=== PATIENT | female | born 1940 | race Caucasian/White ===

== ENCOUNTER 2019-06-24 07:01 | Inpatient (IN) | payer MEDICARE ==
[2019-06-24] MEDS ORDERED: ONDANSETRON 4 MG/2 ML INJ IV ONE (07:04)
[2019-06-24] MEDS ORDERED: CLOPIDOGREL 300 MG TAB PO ONE (07:04)
[2019-06-24] MEDS ORDERED: fentaNYL 100 MCG/2 ML INJ IV ONE (07:04)
[2019-06-24] MEDS ORDERED: HEPARIN 10,000 UNITS/10 ML VIAL IV ONE (07:05)
--- NOTE | 2019-06-24 07:09 | Emergency Department Report ---
HPI - General Time Seen by Provider: 06/24/19 07:03 - [facility] HPI: Room 22 The patient is an 79-year-old female presented with a chief complaint of chest pain. History is obtained by the daughter as the patient does not speak [place]. The patient reportedly began complaining of substernal chest pressure at 05:00 this morning. Patient missed a shortness of breath, diaphoresis and nausea without vomiting with her chest pressure. Patient currently gets her chest pain score 7/10. Patient to aspirin 324 mg at home. The patient states she had 2 cardiac stents placed in 2012 Location: [See above] Duration: [See above] Quality: [See above] Severity: [See above] Timing: [See above] Context: [See above] Modifying factors: [See above] Associated signs and symptoms: [see above] ED Past Medical Hx - Past Medical History Hx Hypertension: Yes Hx Heart Attack/AMI: Yes (2012 stent 2) - Surgical History Hx Coronary Stent: Yes (2012) Hx Cholecystectomy: Yes - Family History Family history: no significant - Social History Smoking Status: Never Smoker Substance Use Type: None ED Review of Systems ROS: Stated complaint: CHEST PAIN Other details as noted in HPI Constitutional: diaphoresis Eyes: denies: eye pain ENT: denies: throat pain Respiratory: shortness of breath Cardiovascular: chest pain Endocrine: no symptoms reported Gastrointestinal: nausea. denies: vomiting Genitourinary: denies: dysuria Musculoskeletal: denies: back pain Neurological: denies: headache Physical Exam - Physical Exam Physical Exam: GENERAL: The patient is well-developed well-nourished female sitting on stretcher not appearing to be in acute distress. [] HEENT: Normocephalic. Atraumatic. Extraocular motions are intact. Patient has moist mucous membranes. NECK: Supple. Trachea midline CHEST/LUNGS: There is no respiratory distress noted. HEART/CARDIOVASCULAR: Regular. There is no tachycardia. There is no gallop rub or murmur. ABDOMEN: Abdomen is soft, nontender. Patient has normal bowel sounds. There is no abdominal distention. SKIN: There is no rash. There is no edema. There is no diaphoresis. NEURO: The patient is awake, alert, and oriented. The patient is cooperative. The patient has normal speech MUSCULOSKELETAL: There is no evidence of acute injury. ED Course - Consultations Consultation #1: 06/24/19 06:47 Code STEMI called and EKG sent to cardiology (Dr Ellison) 06/24/19 06:[address] Ellison ED Medical Decision Making - EKG Data -: EKG Interpreted by Me EKG shows normal: sinus rhythm Rate: normal - EKG Data When compared to previous EKG there are: previous EKG unavailable Interpretation: acute MD - Differential Diagnosis STEMI Critical care attestation.: If time is entered above; I have spent that time in minutes in the direct care of this critically ill patient, excluding procedure time. ED Disposition Clinical Impression: STEMI (ST elevation myocardial infarction), Acute chest pain Disposition: 09 OP ADMIT IP TO THIS HOSP Is pt being admited?: Yes Does the pt Need Aspirin: No (patient received prior to arrival) Condition: Serious Instructions: Chest Pain (ED) Time of Disposition: 07:23 (patient going to cath lab nurse)
[2019-06-24 07:22] LABS: Hematocrit 39.8 % (30.3-42.9); Hemoglobin 13.1 gm/dl (10.1-14.3)
[2019-06-24] MEDS ORDERED: MIDAZOLAM 2 MG/2 ML INJ ONE (07:26)
[2019-06-24] MEDS ORDERED: fentaNYL 100 MCG/2 ML INJ ONE (07:26)
[2019-06-24] MEDS ORDERED: VERAPAMIL 5 MG/2 ML INJ ONE (07:26)
[2019-06-24] MEDS ORDERED: HEPARIN/NS 5000 UNIT/500ML 1,000 ML IR ONE (07:26)
[2019-06-24] MEDS ORDERED: NITROGLYCERIN SYRINGE 3 ML ONE (07:27)
[2019-06-24] MEDS ORDERED: LIDOCAINE (2%) 20 MG/1 ML VIAL 20 ML MDV INFILTRATI ONE (07:27)
[2019-06-24] MEDS ORDERED: SODIUM CHLORIDE 0.9% 500 ML 500 ML ONE (07:27)
[2019-06-24 07:28] LABS: INR 0.98 (0.87-1.13)
[2019-06-24 07:29] LABS: Partial Thromboplastin Time 26.3 Sec. (24.2-36.6)
[2019-06-24] MEDS ORDERED: HEPARIN/ 0.45% NACL DRIP 25,000 UNIT/500 ML BAG IV SCH (08:00)
[2019-06-24] MEDS: HEPARIN 10,000 UNITS/10 ML VIAL ONE ×2 (08:07→08:22)
[2019-06-24] MEDS ORDERED: HEPARIN/NS 5000 UNIT/500ML 500 ML IR ONE ×2 (08:30→09:05)
[2019-06-24] MEDS ORDERED: PROTAMINE SULFATE 50 MG/5 ML INJ ONE (08:49)
[2019-06-24 09:13] LABS: BUN/Creatinine Ratio 27; Blood Urea Nitrogen 19 mg/dL (7-17); Calcium 9.1 mg/dL (8.4-10.2); Hemolysis Index 3
--- NOTE | 2019-06-24 09:33 | Cardiac Catherization Report ---
CARDIAC CATHETERIZATION AND CORONARY ANGIOPLASTY REPORT REASON FOR PROCEDURE: Acute inferior wall ST elevation myocardial infarction. PROCEDURES: 1. Left heart catheterization. 2. Selective left and right coronary angiography. 3. Angioplasty of the distal right coronary artery, unsuccessful. 4. Sedation time, start 07:59, end 08:47. INDICATIONS: The patient is an 79-year-old woman who presented to the hospital with several hours of chest pain, ECG consistent with an acute inferior ST elevation myocardial infarction. Emergency cardiac catheterization protocol was activated. PROCEDURE: The patient was prepped and draped in a sterile fashion under emergency protocol. The right femoral artery was entered using Seldinger technique followed by placement of 6-Romanian sheath. Selective left and right coronary angiography was performed using a #4 left Enrique catheter, and a #4 right Enrique guide. The angiograms were reviewed. CORONARY ANGIOGRAPHY: The left main coronary artery contained mild irregularities. There was diffuse mild atherosclerosis of the LAD and diagonal branches. A large ramus intermedius artery contained diffuse mild atherosclerosis. The circumflex artery and its obtuse marginal branches were moderately ectatic and contained diffuse mild atherosclerosis. The right coronary artery was severely ectatic and tortuous. There was complete occlusion of the distal vessel, just after the acute margin. This was the infarct related lesion. CORONARY ANGIOPLASTY: A 0.014 inch Thermodynamicist 50 guidewire was introduced into the distal vessel. Following wire placement, we were repeatedly unable to transition a balloon catheter across the lesional segment. Multiple approaches were then deployed, including switching the guide catheter to a hockey stick guide catheter for better guide support. Despite this, the use of a stiff extra support Choice PT wire, and the use of a adrian wire, we were unable to transition the lowest profile balloon, a 1.5 mm balloon across the lesional segment. Additional attempts to transition and over the wire balloon also failed. Following multiple attempts as described, the procedure was aborted, the catheters and the wires were inserted. Post-intervention angiograms showed the lesion unchanged, occluded dominant right coronary artery, just adjacent to the acute margin. ECHOCARDIOGRAPHY: A stat 2D echocardiogram was done that demonstrated no pericardial effusion. At the conclusion of the procedure, the patient was hemodynamically stable with a blood pressure of 150 systolic, heart rate of 85, sinus rhythm. CONCLUSION: 1. Acute inferior wall ST elevation myocardial infarction. 2. Emergency cardiac catheterization. 3. Completely occluded distal right coronary artery, at the acute margin. 4. Attempted primary angioplasty of the distal right coronary artery unsuccessful due to severe vessel tortuosity and calcification. The patient will be transferred emergently to tertiary care center for further review of revascularization options for the right coronary artery. JOB# [id number] ANISH/RICHARD PERLA
[2019-06-24 10:20] VITALS: BP 137/71
--- NOTE | 2019-06-24 10:39 | Short Stay Summary ---
Short Stay Documentation Date of service: 06/24/19 Narrative H&P: Patient is 79 yo with hypertension, hyperlipidemia, CAD s/p previous [place] in 2012. She presents with chest pain, started 5am this morning. She was transported to ED by EMS, found to have STEMI. She was taken urgently to [facility] . Left and right coronary angiography done by Dr. Ellison. This revealed 100% occlusion RCA. PCI was attempted but unsuccessful. cardiology recommends transfer to [place]. arrangements made and she is being transferred to [facility]. - History Principal diagnosis: Acute inferior STEMI Past Medical History: acute [place], CAD, hypertension, hyperlipidemia Past Surgical History: cholecystectomy Social history: lives with family, IV drug use, no smoking, no alcohol abuse - Allergies and Medications Current Medications: Allergies No Known Allergies Allergy (Unverified 06/24/19 07:46) Active Medications Heparin Sodium/Sodium Chloride (Heparin/ 0.45% Nacl-25,000 Unit/500 Ml) 25,000 unit in 500 mls @ 14 mls/hr IV TITRATE STEPHAN; Protocol - Physical exam General appearance: no acute distress HEENT: PERRLA Lungs: Clear to auscultation Heart: Regular rate, Normal S1, Normal S2, No murmurs Gastrointestinal: normal Extremities: No edema Neurological: Normal speech, Other (AAO x 3) - Brief post op/procedure progress note Date of procedure: 06/24/19 Pre-op diagnosis: STEMI - Hospital course Hospital course: Patient is 79 yo with hypertension, hyperlipidemia, CAD s/p previous [place] in 2012. She presents with chest pain, started 5am this morning. She was transported to ED by EMS, found to have STEMI. She was taken urgently to [facility] . Left and right coronary angiography done by Dr. Ellison. This revealed 100% occlusion RCA. PCI was attempted but unsuccessful. cardiology recommends transfer to [place]. arrangements made and she is being transferred to [facility]. - Disposition Condition at discharge: Serious Disposition: [id number] IP - Discharge Diagnoses (1) HTN (hypertension) Status: Acute (2) Hyperlipidemia Status: Acute (3) CAD (coronary artery disease) Status: Acute (4) Acute chest pain Status: Acute (5) STEMI (ST elevation myocardial infarction) Status: Acute Comment: Acute inferior Short Stay Discharge Plan Follow up with: PRIMARY CAREMD [Primary Care Provider] - 3-5 Days
== END 2019-06-24 17:15 | disposition short-term general hospital (02) | DRG 282 ==
LOC: ED 07:01 → CC1 08:06
PROVIDERS: ADMIT Internal Medicine; ATTEND Internal Medicine
PROC: 4A023N7 Measurement of Cardiac Sampling and Pressure, Left Heart, Percutaneous Approach (ICD-10-PCS; principal; 2019-06-24)
PROC: B2111ZZ Fluoroscopy of Multiple Coronary Arteries using Low Osmolar Contrast (ICD-10-PCS; 2019-06-24)
PROC: B2151ZZ Fluoroscopy of Left Heart using Low Osmolar Contrast (ICD-10-PCS; 2019-06-24)
PROC: 02JA3ZZ Inspection of Heart, Percutaneous Approach (ICD-10-PCS; 2019-06-24)
DX: I21.19 ST elevation (STEMI) myocardial infarction involving other coronary artery of inferior wall (principal); I25.10 Atherosclerotic heart disease of native coronary artery without angina pectoris; I10 Essential (primary) hypertension; E78.5 Hyperlipidemia, unspecified; Z90.49 Acquired absence of other specified parts of digestive tract; I25.2 Old myocardial infarction; Z95.5 Presence of coronary angioplasty implant and graft
CPT/HCPCS: 36415; 80048; 85014; 85018; 85049; 85610; 85730; 92920; 93005; 93010; 93308; 93321; 93325; 93454; 96360; G0378; C1725; C1769; C1887; C1894; J1644; J2250; J2405; J2720; J3010; J7040; Q9967